=== PATIENT | female | born 1930 | race Caucasian/White ===

== ENCOUNTER 2019-05-28 08:27 | Emergency (ER) | payer MEDICARE, BC ==
[2019-05-28 08:30] VITALS: Wt 62.7 kg
[2019-05-28 09:19] LABS: CALC OSMOLALITY 290 mosm/kg (275-300); CALCIUM 8.6 mg/dL (8.5-10.1); CARBON DIOXIDE 23.8 mmol/L (21.0-32.0); CHLORIDE - SERUM 107 mmol/L (98-107); CREATININE - SERUM 0.7 mg/dL (0.6-1.3); GLUCOSE 119 mg/dL (74-106); POTASSIUM - SERUM 3.7 mmol/L (3.5-5.1); SODIUM 141 mmol/L (136-145); UREA NITROGEN 39 mg/dL (7-18); eGFR NON AFRICAN AMERICAN 83 mL/min (90-120)
[2019-05-28] MEDS ORDERED: ZOLOFT100 MG PO (09:25)
[2019-05-28] MEDS ORDERED: SOMA350 MG PO (09:26)
[2019-05-28] MEDS ORDERED: LISINOPRIL10 MG PO (09:26)
[2019-05-28] MEDS ORDERED: PEPCID AC20 MG PO (09:26)
[2019-05-28] MEDS ORDERED: VESICARE10 MG PO (09:27)
[2019-05-28] MEDS ORDERED: PROTONIX40 MG PO (09:27)
[2019-05-28] MEDS ORDERED: ULTRACET PO (09:27)
[2019-05-28] MEDS ORDERED: DEXILANT60 MG PO (09:28)
[2019-05-28] MEDS ORDERED: KLONOPIN0.5 MG PO (09:28)
[2019-05-28 09:36] LABS: ALBUMIN 3.1 g/dL (3.4-5.0); ALKALINE PHOSPHATASE 61 U/L (46-116); ALT (SGPT) 19 U/L (10-68); BILIRUBIN - TOTAL 0.34 mg/dL (0.2-1.3); CKMB 2.6 U/L (0.0-3.6); CREATINE KINASE 312 UL (21-215); MAGNESIUM - SERUM 1.9 mg/dL (1.8-2.4); PROTEIN - SERUM 5.8 g/dL (6.4-8.2); TROPONIN-I < 0.017 ng/mL (0.000-0.060)
[2019-05-28 09:50] LABS: BASOPHILS 0.4 % (0-2); EOSINOPHILS 0.6 % (0-7); HEMATOCRIT 20.9 % (36.0-48.0); IMMATURE GRANULOCYTES 0.2 % (0-5); LYMPHOCYTES 7.9 % (15-50); MCH 30.7 pg (26.0-34.0); MCHC 31.1 g/dL (31.0-37.0); MCV 98.6 fL (80.0-100.0); MEAN PLATELET VOLUME 8.6 fL (7.4-10.4); MONOCYTES 5.1 % (2-11); NEUTROPHILS 85.8 % (40-80); RBC 2.12 10x6/uL (4.00-5.40); RDW 15.3 % (11.5-14.5); WBC 5.1 10x3/uL (4.8-10.8)
[2019-05-28 09:51] LABS: PLATELET COUNT 193 10x3/uL (130-400)
[2019-05-28 09:52] LABS: HEMOGLOBIN 6.5 g/dL (12-16)
[2019-05-28 10:00] LABS: APTT 24.2 SECONDS (22.8-39.4); INR 1.15 (0.85-1.17); PROTIME 14.2 SECONDS (11.6-15.0)
[2019-05-28 14:00] VITALS: BP 125/56
== END 2019-05-28 14:22 | disposition other institution (70) ==
LOC: D.ER 08:27
PROVIDERS: Family Medicine
DX: K92.2 Gastrointestinal hemorrhage, unspecified (principal); D62 Acute posthemorrhagic anemia; R07.89 Other chest pain; Z86.73 Personal history of transient ischemic attack (TIA), and cerebral infarction without residual deficits; I10 Essential (primary) hypertension

== ENCOUNTER 2019-07-03 11:18 | Outpatient (CLI) | payer MEDICARE, BC ==
[~2019-07-03] VITALS: Ht 160 cm; Wt 62.7 kg
[~2019-07-03 11:18] MED LIST: DEXILANT60 MG PO; KLONOPIN0.5 MG PO; LISINOPRIL10 MG PO; PEPCID AC20 MG PO; PROTONIX40 MG PO; SOMA350 MG PO; ULTRACET PO; VESICARE10 MG PO; ZOLOFT100 MG PO
[2019-07-03 12:19] VITALS: Ht 160 cm; Wt 62.7 kg
--- NOTE | 2019-07-03 15:49 | NUR ---
PT VOIDED AND NOW BACK IN BED RESTING QUIETLY. DENIES PAIN/NEEDS AT THIS TIME. WILL CONTINUE TO MONITOR. 1 SIDE RAIL UP
--- NOTE | 2019-07-03 16:51 | NUR ---
DC INSTRUCTIONS GIVEN TO PT/FAMILY. STATE UNDERSTANDING. DC'D IV CATH FULLY INTACT.
== END 2019-07-03 16:56 | disposition home or self-care (01) ==
LOC: D.OPS 11:18
PROVIDERS: ATTEND Family Medicine
DX: K92.2 Gastrointestinal hemorrhage, unspecified (principal)